=== PATIENT | male | born 1950 ===

== ENCOUNTER 2024-02-10 10:42 | Inpatient (IN) | payer OTHER ==
[~2024-02-10] VITALS: Ht 165.1 cm; Wt 70.8 kg
[~2024-02-10 10:42] MED LIST: ASPIRIN81 MG; JANUMET XR 1001 EACH; JARDIANCE10 MG; SIMVASTATIN40 MG; TAMS0.4C; ZITHROMAX200 MG
--- NOTE | 2024-02-10 11:10 | NUR ---
PTE MASCULINMO DE 73YRS ALERTA CONCIENE Y TRANQUILO LLEGA EN AMBULACIOA POR DOLOR ABDOMINAL Y PANCREATITIS DE OTRA [facility]STITUCION [facility] BOLES ELAIS METRO SE LE WALKER S/V Y SE UBICA EN NESSA .
[2024-02-10] MEDS ORDERED: PIPERACILLIN/TAZOBACTAM SODIUM 3.375 GM VIAL IV ONE (11:15)
[2024-02-10] MEDS ORDERED: 0.9 % SODIUM CHLORIDE 1,000 ML IV SCH ×2 (11:15→17:30)
--- NOTE | 2024-02-10 11:31 | NUR ---
SE LE ORIENTA A PACIENTE SOBRE LA ORDEN MEDICA, REFIERE ENTENDER LAS MISMAS. SE CANALIZA Y SE LE COLOCA H/L, SE LE ELIAN LAS MUETRAS, SE LE ADMINISTRAN LOS MEDICAMENTOS Y SE NOTIFICAN LAS CONSULTAS TARIQ LA ORDEN MEDICA.
[2024-02-10 11:45] LABS: HEMATOCRIT 32.7 % (39.0-48.0); HEMOGLOBIN 11.2 g/dL (13-16.00); MEAN CELL VOLUME 90.7 fL (80.0-100.00); MEAN CORPUSCULAR HEMOGLOBIN 31.1 pg (27.00-32.0); MEAN CORPUSCULAR HGB CONC 34.3 g/dl (32.0-36.0); PLATELET COUNT 140 K/uL (150-450); RED BLOOD COUNT 3.61 M/uL (4.00-6.00); RED CELL DISTRIBUTION WIDTH 12.1 % (11.5-14.5)
[2024-02-10 12:44] LABS: ALT/SGPT 121 U/L (12-78); AST/SGOT 31 U/L (15-37)
[2024-02-10 12:49] LABS: ALBUMIN 2.7 gm/dL (3.4-5.0); BILIRUBIN TOTAL 1.46 mg/dL (0.3-1.2); CALCIUM 8.4 mg/dL (8.5-10.1); CREATININE SERUM 0.76 mg/dL (0.70-1.30); GFR 100.82; GLOBULINA 3.8 G/DL (2.4-3.5); POTASSIUM 3.56 mEq/L (3.5-5.1); TOTAL PROTEIN 6.5 gm/dL (6.4-8.2)
[2024-02-10 13:17] LABS: URINE APPEARANCE Clear; URINE BACTERIA 4.8 uL (0.0-1933); URINE BILIRRUBIN Negative (NEGATIVE); URINE BLOOD Negative; URINE COLOR Yellow; URINE GLUCOSE Negative (NEGATIVE); URINE KETONE 15 (NEGATIVE); URINE LEUKOCYTE Negative; URINE NITRATE Negative; URINE PROTEIN Trace (NEGATIVE); URINE WBC 3.4 uL (0.0-23.2)
[2024-02-10 13:27] LABS: URINE RBC 1.3 uL (0.0-20.8)
[2024-02-10] MEDS ORDERED: MORPHINE SULFATE 4 MG/ML CARTRIDGE IV PRN (17:30)
[2024-02-10] MEDS ORDERED: ONDANSETRON HCL 4 MG in 0.9 % SODIUM CHLORIDE 50 ML IV PRN (17:30)
[2024-02-10] MEDS ORDERED: INSULIN LISPRO 1,000 UNIT/10 ML UNITS SUBCUTANEO PRN (17:30)
[2024-02-10] MEDS ORDERED: DEXTROSE 50 % IN WATER 0.5 G/ML DISP.SYRIN IV PRN (17:30)
[2024-02-10 17:53] VITALS: BP 148/71; O2SAT 95
[2024-02-10] MEDS ORDERED: PIPERACILLIN/TAZOBACTAM SODIUM 3.375 GM in DEXTROSE 5 % IN WATER 100 ML IV SCH (18:00)
[2024-02-10] MEDS ORDERED: MORPHINE SULFATE 4 MG/ML CARTRIDGE IV SCH (20:00)
[2024-02-10 21:54] VITALS: BP 120/60; O2SAT 95
[2024-02-11 03:21] VITALS: BP 110/50; O2SAT 97
[2024-02-11 07:13] LABS: INR 1.37; PARTIAL THROMBOPLASTIN TIME 31.7 SECONDS (22.0-34.0); PROTHROMBIN TIME 14.6 SECONDS (9.0-11.5)
[2024-02-11 07:16] LABS: AMYLASE 219 U/L (25-115)
[2024-02-11 07:20] LABS: LIPASE 246 U/L (13-75)
[2024-02-11 08:55] VITALS: BP 140/70; O2SAT 98
[2024-02-11] MEDS ORDERED: ENOXAPARIN SODIUM 40 MG/0.4 ML SYRINGE SUBCUTANEO SCH (09:00)
[2024-02-11] MEDS ORDERED: TAMSULOSIN HCL 0.4 MG CAP PO SCH (09:00)
[2024-02-11] MEDS ORDERED: FAMOTIDINE/PF 20 MG in 0.9 % SODIUM CHLORIDE 8 ML IV PUSH SCH (09:00)
[2024-02-11] MEDS ORDERED: fentaNYL CITRATE 50 MCG/ML AMPUL IV PUSH ONE (15:00)
[2024-02-11] MEDS ORDERED: MIDAZOLAM HCL 2 MG/2 ML VIAL IV ONE (15:00)
[2024-02-11] MEDS ORDERED: IOVERSOL 320 MG/ML - 50 ML VIAL IV ONE (15:45)
[2024-02-11] MEDS ORDERED: GLUCAGON 1 MG VIAL IV ONE (15:45)
[2024-02-11 18:27] VITALS: BP 140/64; O2SAT 94
[2024-02-12 02:44] VITALS: BP 116/56; O2SAT 97
[2024-02-12 08:29] LABS: ALBUMIN 2.3 gm/dL (3.4-5.0); BILIRUBIN TOTAL 1.02 mg/dL (0.3-1.2); CREATININE SERUM 0.65 mg/dL (0.70-1.30); GFR 120.75; GLOBULINA 3.1 G/DL (2.4-3.5); POTASSIUM 3.36 mEq/L (3.5-5.1); TOTAL PROTEIN 5.4 gm/dL (6.4-8.2)
[2024-02-12 10:03] VITALS: BP 138/57; O2SAT 97
[2024-02-12] MEDS ORDERED: POTASSIUM CHLORIDE 10 MEQ CAPSULE PO NR (12:00)
== END 2024-02-12 14:14 | disposition home or self-care (01) | DRG 445 ==
LOC: ER 10:42 → MEDJ 17:40
PROVIDERS: Emergency Medicine; General Practice; Internal Medicine; ADMIT Internal Medicine; ATTEND Internal Medicine
PROC: XFJB8A7 Inspection of Hepatobiliary Duct using Single-use Duodenoscope, New Technology Group 7 (ICD-10-PCS; 2024-02-10)
PROC: BF37ZZZ Magnetic Resonance Imaging (MRI) of Pancreas (ICD-10-PCS; 2024-02-10)
PROC: 0FC98ZZ Extirpation of Matter from Common Bile Duct, Via Natural or Artificial Opening Endoscopic (ICD-10-PCS; 2024-02-11)
PROC: 0F798ZZ Dilation of Common Bile Duct, Via Natural or Artificial Opening Endoscopic (ICD-10-PCS; principal; 2024-02-11 17:00)
DX: K80.50 Calculus of bile duct without cholangitis or cholecystitis without obstruction (principal); R17 Unspecified jaundice; E11.65 Type 2 diabetes mellitus with hyperglycemia; R74.01 Elevation of levels of liver transaminase levels; E03.9 Hypothyroidism, unspecified; F10.21 Alcohol dependence, in remission; Z87.891 Personal history of nicotine dependence; Z79.84 Long term (current) use of oral hypoglycemic drugs; Z90.49 Acquired absence of other specified parts of digestive tract